=== PATIENT | female | born 1985 | race Caucasian/White ===

== ENCOUNTER 2020-08-20 18:18 | Emergency (ER) | payer OTHER | END 2020-08-20 19:46 | disposition left against medical advice (07) | LOC: ER1 18:18 | DX: Z53.21 Procedure and treatment not carried out due to patient leaving prior to being seen by health care provider (principal) ==

== ENCOUNTER → 2020-08-23 | Outpatient (CLI) | payer OTHER | LOC: KOH-I 16:22 | DX: R06.02 Shortness of breath (principal) | CPT/HCPCS: 71046 ==

== ENCOUNTER → 2020-12-24 | Outpatient (CLI) | payer OTHER | LOC: KOH-I 12:28 | DX: M79.672 Pain in left foot (principal) | CPT/HCPCS: 73620 ==